=== PATIENT | female | born 1950 | race Caucasian/White ===

== ENCOUNTER 2016-07-08 09:35 | Outpatient (RCR) | payer OTHER, MEDICARE ==
[~2016-07-08 09:35] MED LIST: AMLO-320 PO; ASP81TEC PO; CLCX200C PO; CLON0.3T4 PO; EXEM25TA4 PO; HUM100VI12 SQ; HUM100VI14 SC; HYDR-3583 PO; INSU100V3 IJ; METO100T5 PO; MTF500T PO; NPH,100V SQ; OLME1TAB19 PO; OLME20TA21 PO; OMEP20CA6 PO; PRAV40TA PO
--- OUTSIDE RECORDS SUMMARY | 2016-07-08 09:38 | XMS REPORT | Continuity of Care Document ---
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 Medications Current Home Medications Medication Dose Units Route Directions Days/Qty Instructions Start Date Metformin Hcl (Glucophage) 500 Mg 2 Each Oral Twice A Day With Meals 11/10/11 Metformin Hcl (Glucophage) 500 Mg 1 Each Oral Noon 11/10/11 Celecoxib 200 Mg 1 Each Oral Daily 11/10/11 Pravastatin Sodium 40 Mg 40 Mg Oral Daily 11/10/11 Clonidine Hcl 0.3 Mg 1 Each Oral Three Times A Day 11/10/11 Hum Insulin Nph/Reg Insulin Hm 300 Units/3 Ml 60 - 65 Units Subcutaneously Daily 11/10/11 Insulin Regular Human Rec 100 U/Ml 20 - 25 U Injection Evening 11/09 Insulin Nph Human Recom 100 U/Ml 20 - 25 U Sub-Q Bedtime 11/10/11 Metoprolol Succinate (Toprol Xl) 100 Mg 1 Each Oral Twice A Day 11/05 Amlodipine/Atorvastatin 1 Each 1 Each Oral Daily 11/10/11 Omeprazole 20 Mg 20 Mg Oral Daily 11/10/11 Acetaminophen/Hydrocodone Bitart 1 Tab 1 - 2 Ea Oral Q4hr Prn MAY TAKE 1 OR 2 TABS BY MOUTH EVERY 4 HRS NEEDED FOR PAIN DO NOT EXCEED 3000 MG TYLENOL (ACETAMINOPHEN) IN A 24 HR PERIOD 11/24/11 Olmesartan 20 Mg 1 Each Oral Daily 04/30/12 Exemestane 25 Mg 50 Mg Oral 04/30/12 Past Home Medications Medication Directions Ordered Status Olmesartan 1 Tab Tablet, 1 Each Oral Daily 11/10/11 Discontinued Hum Insulin Nph/Reg Insulin Hm 3 Ml Insuln.pen, 3 Ml Sub-Q 11/10/11 Discontinued Aspirin 81 Mg Tabec, 81 Mg Oral Daily 11/10/11 Discontinued Social History Social History Problem Response Recorded Date/Time Recent Foreign Travel SEE [facility] 01/08/2016 9:25am Hx Sexually Transmitted Disorders No 2011 8:58am Hospital Discharge Instructions No hospital discharge instructions. Plan of Care Prescriptions See Medication Section Functional Status No functional status results. Allergies, Adverse Reactions, Alerts Allergen Type Severity Reaction Status Last Updated Penicillins ([id number]) Allergy Unknown Active 11/24/11 Immunizations No immunization records. Vital Signs No known vital signs results. Results No known relevant diagnostic tests, laboratory data and/or discharge summary. Procedures No known history of procedures. Encounters Encounter Location Arrival/Admit Date Discharge/Depart Date Attending Provider Discharged [facility] 01/08/16 9:29am 11:59pm GENIA BREWER MD
[2016-07-08 09:39] LABS: BASOPHILS # (AUTO) 0.1 10^3/uL (0.0-0.1); BASOPHILS % (AUTO) 1 % (0-10); EOSINOPHILS # (AUTO) 0.3 10^3/uL (0.0-0.3); EOSINOPHILS % (AUTO) 4 % (0-10); LYMPHOCYTES # (AUTO) 2.1 X 10^3 (1.0-4.0); LYMPHOCYTES % (AUTO) 29 % (12-44); MEAN CORPUSCULAR HEMOGLOBIN 30 PG (25-34); MEAN CORPUSCULAR HGB CONC 33 G/DL (32-36); MEAN CORPUSCULAR VOLUME 90 FL (80-99); MEAN PLATELET VOLUME 9.8 FL (7.4-10.4); MONOCYTES # (AUTO) 0.6 X 10^3 (0.0-1.0); MONOCYTES % (AUTO) 9 % (0-12); NEUTROPHILS # (AUTO) 4.3 X 10^3 (1.8-7.8); NEUTROPHILS % (AUTO) 58 % (42-75); PLATELET COUNT 331 10^3/uL (130-400); WHITE BLOOD COUNT 7.3 10^3/uL (4.3-11.0)
[2016-07-08 10:09] LABS: ALBUMIN 4.4 G/DL (3.2-4.5); BILIRUBIN,TOTAL 0.6 MG/DL (0.1-1.0); CALCIUM 10.3 MG/DL (8.5-10.1); CREATININE SERUM 1.23 MG/DL (0.60-1.30); POTASSIUM 3.9 MMOL/L (3.6-5.0); TOTAL PROTEIN 7.5 G/DL (6.4-8.2)
[2016-07-08 10:29] LABS: THYROID STIMULATING HORMONE 1.04 UIU/ML (0.35-4.94)
== END 2016-10-06 | disposition home or self-care (01) ==
LOC: ONC 09:35
PROVIDERS: ATTEND Internal Medicine Hematology & Oncology
DX: C50.512 Malignant neoplasm of lower-outer quadrant of left female breast (principal); M81.0 Age-related osteoporosis without current pathological fracture; E11.22 Type 2 diabetes mellitus with diabetic chronic kidney disease; I12.9 Hypertensive chronic kidney disease with stage 1 through stage 4 chronic kidney disease, or unspecified chronic kidney disease; N18.9 Chronic kidney disease, unspecified; E78.00 Pure hypercholesterolemia, unspecified; M12.9 Arthropathy, unspecified; R23.2 Flushing; Z92.3 Personal history of irradiation; Z79.4 Long term (current) use of insulin
CPT/HCPCS: 36415; 80053; 84439; 84443; 85025; 99213

== ENCOUNTER → 2016-10-29 | Outpatient (CLI) | payer MEDICARE, OTHER ==
--- NOTE | 2016-10-29 17:18 | Diagnostic Imaging Report ---
Bilateral screening mammogram The current study was also evaluated with a Computer Aided Detection (CAD) system. Indication: Screening. No current complaints stated on the questionnaire. COMPARISON: 09/09/15 From findings: The breasts are composed of suggested dense parenchyma which may decrease mammographic sensitivity. Again seen dystrophic calcifications slightly increased in the outer aspect of the left breast and the scarring related to prior lumpectomy and radiation in the outer aspect of the left breast. The right breast demonstrate the no definite change. Allowing for technique and positional differences, no suspicious change is seen. IMPRESSION: No significant change. ACR BI-RADS Category 2: Benign findings. Result letter will be mailed to the patient. Note: At least 10% of breast cancer is not imaged by mammography. Dictated by: Dictated on workstation # [id number]
== END ==
LOC: RAD 10:18
PROVIDERS: ATTEND Internal Medicine Hematology & Oncology
DX: Z12.31 Encounter for screening mammogram for malignant neoplasm of breast (principal)
CPT/HCPCS: 77067

== ENCOUNTER 2017-01-06 11:01 | Outpatient (RCR) | payer MEDICARE, OTHER ==
[2017-01-06 11:15] LABS: RED BLOOD COUNT 4.48 10^6/uL (4.35-5.85); WHITE BLOOD COUNT 7.4 10^3/uL (4.3-11.0)
[2017-01-06 11:16] LABS: BASOPHILS % (AUTO) 1 % (0-10); EOSINOPHILS # (AUTO) 0.3 10^3/uL (0.0-0.3); EOSINOPHILS % (AUTO) 4 % (0-10); LYMPHOCYTES # (AUTO) 2.2 X 10^3 (1.0-4.0); LYMPHOCYTES % (AUTO) 30 % (12-44); MEAN CORPUSCULAR HEMOGLOBIN 29 PG (25-34); MEAN CORPUSCULAR HGB CONC 33 G/DL (32-36); MEAN CORPUSCULAR VOLUME 89 FL (80-99); MEAN PLATELET VOLUME 9.8 FL (7.4-10.4); MONOCYTES # (AUTO) 0.6 X 10^3 (0.0-1.0); MONOCYTES % (AUTO) 8 % (0-12); NEUTROPHILS # (AUTO) 4.3 X 10^3 (1.8-7.8); NEUTROPHILS % (AUTO) 58 % (42-75); PLATELET COUNT 266 10^3/uL (130-400); RED CELL DISTRIBUTION WIDTH 14.3 % (10.0-14.5)
[2017-01-06 12:06] LABS: ALBUMIN 3.9 GM/DL (3.2-4.5); BILIRUBIN,TOTAL 0.4 MG/DL (0.1-1.0); CALCIUM 9.6 MG/DL (8.5-10.1); CREATININE SERUM 1.06 MG/DL (0.60-1.30); POTASSIUM 3.5 MMOL/L (3.6-5.0)
== END 2017-02-13 | disposition home or self-care (01) ==
LOC: ONC 11:01
PROVIDERS: ATTEND Internal Medicine Hematology & Oncology
DX: C50.912 Malignant neoplasm of unspecified site of left female breast (principal); E11.22 Type 2 diabetes mellitus with diabetic chronic kidney disease; I12.9 Hypertensive chronic kidney disease with stage 1 through stage 4 chronic kidney disease, or unspecified chronic kidney disease; N18.9 Chronic kidney disease, unspecified; E78.00 Pure hypercholesterolemia, unspecified; M12.9 Arthropathy, unspecified; R23.2 Flushing; Z92.3 Personal history of irradiation
CPT/HCPCS: 36415; 80053; 85025; 99213

== ENCOUNTER 2017-07-26 11:55 | Outpatient (RCR) | payer MEDICARE, OTHER ==
[2017-07-12 13:53] LABS: BASOPHILS # (AUTO) 0.1 10^3/uL (0.0-0.1); BASOPHILS % (AUTO) 1 % (0-10); EOSINOPHILS # (AUTO) 0.3 10^3/uL (0.0-0.3); EOSINOPHILS % (AUTO) 3 % (0-10); HEMATOCRIT 39 % (35-52); HEMOGLOBIN 13.1 G/DL (11.5-16.0); LYMPHOCYTES # (AUTO) 3.2 X 10^3 (1.0-4.0); LYMPHOCYTES % (AUTO) 31 % (12-44); MEAN CORPUSCULAR HEMOGLOBIN 31 PG (25-34); MEAN CORPUSCULAR HGB CONC 34 G/DL (32-36); MEAN CORPUSCULAR VOLUME 93 FL (80-99); MONOCYTES % (AUTO) 9 % (0-12); NEUTROPHILS # (AUTO) 5.8 X 10^3 (1.8-7.8); NEUTROPHILS % (AUTO) 57 % (42-75); PLATELET COUNT 244 10^3/uL (130-400); RED BLOOD COUNT 4.17 10^6/uL (4.35-5.85); RED CELL DISTRIBUTION WIDTH 13.9 % (10.0-14.5); WHITE BLOOD COUNT 10.3 10^3/uL (4.3-11.0)
[2017-07-12 14:13] LABS: ALBUMIN 3.9 GM/DL (3.2-4.5); BILIRUBIN,TOTAL 0.4 MG/DL (0.1-1.0); CALCIUM 9.2 MG/DL (8.5-10.1); CREATININE SERUM 1.55 MG/DL (0.60-1.30); POTASSIUM 3.9 MMOL/L (3.6-5.0); TOTAL PROTEIN 7.5 GM/DL (6.4-8.2)
[2017-07-26 12:23] LABS: BILIRUBIN,TOTAL 0.6 MG/DL (0.1-1.0); CALCIUM 9.6 MG/DL (8.5-10.1); CREATININE SERUM 1.36 MG/DL (0.60-1.30); POTASSIUM 3.8 MMOL/L (3.6-5.0); TOTAL PROTEIN 7.6 GM/DL (6.4-8.2)
== END 2017-10-10 | disposition home or self-care (01) ==
LOC: ONC 11:55
PROVIDERS: ATTEND Internal Medicine Hematology & Oncology
DX: C50.912 Malignant neoplasm of unspecified site of left female breast (principal); E11.22 Type 2 diabetes mellitus with diabetic chronic kidney disease; I12.9 Hypertensive chronic kidney disease with stage 1 through stage 4 chronic kidney disease, or unspecified chronic kidney disease; N18.9 Chronic kidney disease, unspecified; E78.00 Pure hypercholesterolemia, unspecified; R19.5 Other fecal abnormalities; M12.9 Arthropathy, unspecified; R23.2 Flushing; Z92.3 Personal history of irradiation; C50.512 Malignant neoplasm of lower-outer quadrant of left female breast; M81.0 Age-related osteoporosis without current pathological fracture; Z79.4 Long term (current) use of insulin
CPT/HCPCS: 36415; 80053; 82274; 85025; 99213

== ENCOUNTER → 2017-11-04 | Outpatient (CLI) | payer MEDICARE, OTHER ==
--- NOTE | 2017-11-04 12:41 | Diagnostic Imaging Report ---
PROCEDURE: US Renal Bilateral. TECHNIQUE: Multiple Real-time grayscale images were obtained over the kidneys in various projections bilaterally. INDICATION: Chronic kidney disease, stage III. FINDINGS: The right kidney measures 9.7 x 5.6 x 4.8 cm and the left kidney measures 9.0 x 5.5 x 4.5 cm. The cortical thickness is slightly thinned. The echogenicity is normal. No calculi are seen. There is no hydronephrosis. The partially filled urinary bladder is unremarkable. Ureteral jets are visualized bilaterally. IMPRESSION: There is mild cortical thinning bilaterally. No renal mass, calculus, or hydronephrosis is identified. Dictated by: Dictated on workstation # [id number]
== END ==
LOC: RAD 09:56
PROVIDERS: ATTEND Internal Medicine Nephrology
DX: N18.3 Chronic kidney disease, stage 3 (moderate) (principal); Z79.1 Long term (current) use of non-steroidal anti-inflammatories (NSAID); Z85.3 Personal history of malignant neoplasm of breast
CPT/HCPCS: 76770

== ENCOUNTER → 2017-11-04 | Outpatient (CLI) | payer MEDICARE, OTHER ==
--- NOTE | 2017-11-04 12:51 | Diagnostic Imaging Report ---
INDICATION: Routine screening. COMPARISON: 10/29/2016 and 09/09/2015. TECHNIQUE: 2D and 3D bilateral screening mammography was performed with CAD. FINDINGS: Both breasts remain heterogeneously dense, limiting the sensitivity of mammography. The overall parenchymal pattern appears to be stable. Post therapeutic changes in the left breast are again noted. The overall appearance appears to be stable. There are some dystrophic calcifications on the left. No mass is seen. Benign vascular calcifications are also seen. The axillae are unremarkable. IMPRESSION: Stable bilateral mammograms. No mammographic features suspicious for malignancy are identified. ACR BI-RADS Category 2: Benign findings. Result letter will be mailed to the patient. Note: At least 10% of breast cancer is not imaged by mammography. Dictated by: Dictated on workstation # [id number]
--- NOTE | 2017-11-04 13:48 | Diagnostic Imaging Report ---
INDICATION: Postmenopausal female presents for bone density screening. COMPARISON: 04/05/2014. TECHNIQUE: DEXA scan performed of the lumbar spine and bilateral hips. FINDINGS: The bone mineral density of the lumbar spine from L1 through L4 measures 1.310 g per square centimeter, with a T score of 1.1 and a Z score of 2.5. There has been an 8.1% decrease in bone mineral density since the prior study. The bone mineral density of the total right hip measures 1.163 g per square centimeter, with a T score 1.2 and a Z score of 2.4. The right femoral neck bone mineral density measures 0.946 g per square centimeter, with a T score of -0.7 and a Z score of 0.8. The bone mineral density of the total left hip measures 1.297 g per square centimeter, with a T score of 2.3 and a Z score of 3.5. The bone mineral density of the left femoral neck measures 1.048 g per square centimeter, with a T score of 0.1 and a Z score of 1.5. The mean bone mineral density of the bilateral hips demonstrates a 5.2% increase since the previous exam. IMPRESSION: 1. Normal bone mineral density by WHO criteria. 2. Interval decrease in bone mineral density in lumbar spine and increase in the mean bilateral hips. Dictated by: Dictated on workstation # [id number]
== END ==
LOC: RAD 09:53
PROVIDERS: ATTEND Nurse Practitioner Adult Health
DX: Z12.31 Encounter for screening mammogram for malignant neoplasm of breast (principal); Z13.820 Encounter for screening for osteoporosis; C50.512 Malignant neoplasm of lower-outer quadrant of left female breast; Z79.811 Long term (current) use of aromatase inhibitors; Z78.0 Asymptomatic menopausal state
CPT/HCPCS: 77067; 77080

== ENCOUNTER → 2018-07-11 | Outpatient (CLI) | payer MEDICARE, OTHER ==
[2018-07-11 13:12] LABS: BASOPHILS % (AUTO) 0 % (0-10); EOSINOPHILS # (AUTO) 0.1 10^3/uL (0.0-0.3); EOSINOPHILS % (AUTO) 1 % (0-10); HEMATOCRIT 38 % (35-52); HEMOGLOBIN 12.3 G/DL (11.5-16.0); LYMPHOCYTES # (AUTO) 2.7 X 10^3 (1.0-4.0); LYMPHOCYTES % (AUTO) 28 % (12-44); MEAN CORPUSCULAR HEMOGLOBIN 31 PG (25-34); MEAN CORPUSCULAR HGB CONC 33 G/DL (32-36); MEAN CORPUSCULAR VOLUME 94 FL (80-99); MEAN PLATELET VOLUME 10.2 FL (7.4-10.4); MONOCYTES # (AUTO) 0.8 X 10^3 (0.0-1.0); MONOCYTES % (AUTO) 8 % (0-12); NEUTROPHILS # (AUTO) 5.9 X 10^3 (1.8-7.8); NEUTROPHILS % (AUTO) 62 % (42-75); PLATELET COUNT 259 10^3/uL (130-400); RED CELL DISTRIBUTION WIDTH 14.2 % (10.0-14.5); WHITE BLOOD COUNT 9.5 10^3/uL (4.3-11.0)
[2018-07-11 13:40] LABS: BILIRUBIN,TOTAL 0.6 MG/DL (0.1-1.0); CALCIUM 9.8 MG/DL (8.5-10.1); CREATININE SERUM 1.35 MG/DL (0.60-1.30); POTASSIUM 3.4 MMOL/L (3.6-5.0); TOTAL PROTEIN 7.1 GM/DL (6.4-8.2)
== END ==
LOC: EDSTATUS 10-11 12:47 → ONC 13:24
PROVIDERS: ATTEND Internal Medicine Hematology & Oncology
DX: Z08 Encounter for follow-up examination after completed treatment for malignant neoplasm (principal); Z85.3 Personal history of malignant neoplasm of breast; E11.9 Type 2 diabetes mellitus without complications; I12.9 Hypertensive chronic kidney disease with stage 1 through stage 4 chronic kidney disease, or unspecified chronic kidney disease; N18.3 Chronic kidney disease, stage 3 (moderate); E78.00 Pure hypercholesterolemia, unspecified; Z88.0 Allergy status to penicillin; Z79.4 Long term (current) use of insulin; Z79.899 Other long term (current) drug therapy; Z79.82 Long term (current) use of aspirin; Z92.3 Personal history of irradiation
CPT/HCPCS: 36415; 80053; 85025; 99213

== ENCOUNTER 2018-07-30 13:12 | Emergency (ER) | payer MEDICARE, OTHER ==
[~2018-07-30] VITALS: Ht 157.5 cm; Wt 72.6 kg
[2018-07-30 13:29] LABS: HEMOGLOBIN 13.9 G/DL (11.5-16.0); MEAN CORPUSCULAR HEMOGLOBIN 31 PG (25-34); WHITE BLOOD COUNT 12.9 10^3/uL (4.3-11.0)
--- NOTE | 2018-07-30 13:29 | ED General ---
General Chief Complaint: Glucose Problems Stated Complaint: DIABETES BS - 34 History of Present Illness Date Seen by Provider: Jul 30, 2018 Time Seen by Provider: 13:14 Initial Comments 67-year-old female with history of insulin-dependent diabetes he came confused and demonstrated altered mental status. Was unable to drive. She had just been to the grocery store. She states she ate a normal breakfast and took her usual dose of insulin this morning. However, she did get more exercise than normal for her. She drank a large amount of morning. Has no associated chest pain, palpitations, nausea, vomiting or other associated symptoms. She has had insulin -dependent diabetes for approximately 25 years. She is alert and oriented when she arrived here. Prior to arrival she received a dose and protein. She dropped her blood sugar from 34-30 and was given D50 and thiamine by EMS. She had prompt improvement of her blood sugar which went to 208 and her neurologic symptoms completely resolved. Allergies and Home Medications Allergies Coded Allergies: Penicillins (Unverified Allergy, Unknown, 11/24/11) Home Medications Amlodipine/Atorvastatin 1 Each Tablet, 1 EACH PO DAILY, (Reported) Benicar Hct 20 Mg Tablet, 1 EACH PO DAILY, (Reported) Celecoxib 200 Mg Capsule, 1 EACH PO DAILY, (Reported) Clonidine Hcl 0.3 Mg Tablet, 1 EACH PO TID, (Reported) Hum Insulin Nph/Reg Insulin Hm 300 Units/3 Ml Suspension, 60-65 UNITS SC DAILY, (Reported) Hydrocodone Bit/Acetaminophen 1 Tab Tab, 1-2 EA PO Q4HR PRN, (Reported) MAY TAKE 1 OR 2 TABS BY MOUTH EVERY 4 HRS NEEDED FOR PAIN DO NOT EXCEED 3000 MG TYLENOL (ACETAMINOPHEN) IN A 24 HR PERIOD Insulin Nph Human Recom 100 U/Ml Vial, 20-25 U SQ HS, (Reported) Insulin Regular Human Rec 100 U/Ml Vial, 20-25 U IJ EVENING, (Reported) Metformin Hcl 500 Mg Tablet, 2 EACH PO BID WITH MEALS, (Reported) Metformin Hcl 500 Mg Tablet, 1 EACH PO NOON, (Reported) Metoprolol Succinate 100 Mg Tab.sr.24h, 1 EACH PO BID, (Reported) Omeprazole 20 Mg Capsule.dr, 20 MG PO DAILY, (Reported) Pravastatin Sodium 40 Mg Tablet, 40 MG PO DAILY, (Reported) Patient Home Medication List Home Medication List Reviewed: Yes Review of Systems Review of Systems Constitutional: see HPI EENTM: no symptoms reported Respiratory: no symptoms reported Cardiovascular: no symptoms reported Gastrointestinal: No diarrhea, No nausea, No vomiting Genitourinary: no symptoms reported Musculoskeletal: no symptoms reported Skin: no symptoms reported Psychiatric/Neurological: See HPI Hematologic/Lymphatic: No Symptoms Reported Immunological/Allergic: no symptoms reported Past Snrmgld-Lnkyec-Gczzvp Hx Patient Social History Recent Foreign Travel: No (N) Contact w/Someone Who Travel: No (N) Past Medical History Reproductive Disorders: No Endocrine: Yes Diabetes, Insulin dep Physical Exam Vital Signs Vital Signs - First Documented 07/30/18 13:24 Temp 97.9 Pulse 75 Resp 18 B/P (MAP) 177/72 (107) Pulse Ox 97 O2 Delivery Room Air Capillary Refill : < 2 sec Height, Weight, BMI Height: '" Weight: lbs. oz. kg; BMI Method:Stated General Appearance: No Apparent Distress (at the time of her arrival), WD/WN Eyes: Bilateral Eye Normal Inspection, Bilateral Eye PERRL, Bilateral Eye EOMI HEENT: PERRL/EOMI, TMs Normal, Normal ENT Inspection, Pharynx Normal Neck: Full Range of Motion, Normal Inspection, Non Tender, Supple, Carotid Bruit Respiratory: Chest Non Tender, Lungs Clear, Normal Breath Sounds, No Accessory Muscle Use, No Respiratory Distress Cardiovascular: Regular Rate, Rhythm, No Edema, No Gallop, No JVD, No Murmur, Normal Peripheral Pulses Gastrointestinal: Normal Bowel Sounds, No Organomegaly, No Pulsatile Mass, Non Tender, Soft Back: Normal Inspection, No CVA Tenderness, No Vertebral Tenderness Extremity: Normal Capillary Refill, Normal Inspection, Normal Range of Motion, Non Tender, No Calf Tenderness, No Pedal Edema Neurologic/Psychiatric: Alert, Oriented x3, No Motor/Sensory Deficits, Normal 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3-11.0 10^3/uL Red Blood Count 4.46 4.35-5.85 10^6/uL Hemoglobin 13.9 11.5-16.0 G/DL Hematocrit 42 35-52 % Mean Corpuscular Volume 95 80-99 FL Mean Corpuscular Hemoglobin 31 25-34 PG Mean Corpuscular Hemoglobin Concent 33 32-36 G/DL Red Cell Distribution Width 13.7 10.0-14.5 % Platelet Count 293 130-400 10^3/uL Mean Platelet Volume 10.4 7.4-10.4 FL Neutrophils (%) (Auto) 57 42-75 % Lymphocytes (%) (Auto) 30 12-44 % Monocytes (%) (Auto) 10 0-12 % Eosinophils (%) (Auto) 2 0-10 % Basophils (%) (Auto) 1 0-10 % Neutrophils # (Auto) 7.3 1.8-7.8 X 10^3 Lymphocytes # (Auto) 3.9 1.0-4.0 X 10^3 Monocytes # (Auto) 1.3 H 0.0-1.0 X 10^3 Eosinophils # (Auto) 0.3 0.0-0.3 10^3/uL Basophils # (Auto) 0.1 0.0-0.1 10^3/uL Sodium Level 138 135-145 MMOL/L Potassium Level 3.7 3.6-5.0 MMOL/L Chloride Level 98 98-107 MMOL/L Carbon Dioxide Level 15 L 21-32 MMOL/L Anion Gap 25 H 5-14 MMOL/L Blood Urea Nitrogen 15 7-18 MG/DL Creatinine 1.29 0.60-1.30 MG/DL Estimat Glomerular Filtration Rate 41 BUN/Creatinine Ratio 12 Glucose Level 40 *L 70-105 MG/DL Calcium Level 9.7 8.5-10.1 MG/DL Corrected Calcium 9.3 8.5-10.1 MG/DL Total Bilirubin 0.7 0.1-1.0 MG/DL Aspartate Amino Transf (AST/SGOT) 60 H 5-34 U/L Alanine Aminotransferase (ALT/SGPT) 59 H 0-55 U/L Alkaline Phosphatase 121 40-136 U/L Troponin T 15 H 12 H <=10 NG/L Total Protein 8.1 6.4-8.2 GM/DL Albumin 4.5 3.2-4.5 GM/DL Glucometer 178 H 175 H 70-110 MG/DL My Orders Orders - LINDA LARKIN MD Comprehensive Metabolic Panel (07/30/18 13:21) Cbc With Automated Diff (07/30/18 13:21) Ua Culture If Indicated (07/30/18 13:21) Ekg Tracing (07/30/18 13:21) Troponin T (07/30/18 13:21) Troponin T (07/30/18 15:11) Accucheck Stat ONCE (07/30/18 15:50) Vital Signs/I&O 07/30/18 13:24 Temp 97.9 Pulse 75 Resp 18 B/P (MAP) 177/72 (107) Pulse Ox 97 O2 Delivery Room Air Capillary Refill : Progress Note #1: Time: 13:29 Progress Note As patient responded to D50 and is neurologically intact we'll obtain basic metabolic workup, UA and cardiac studies. She'll be closely monitored for any recurrence of her hypoglycemia. I discussed the evaluation treatment plan with patient and her family agree with course. Progress Note #2: Time: 14:14 Progress Note Patient doing well. Her blood sugar has been normalized. I discussed her lab studies with her including her elevated liver functions and slightly elevated troponin. I recommended a repeat troponin at 2 hours. She is agreeable to this. 1611 Feeling good. Blood sugars have been good. Second troponin decreased. We discussed her chronic EKG changes and recommended close monitoring of glucose and follow up with PCP. ECG Initial ECG Impression Date: Jul 30, 2018 Initial ECG Impression Time: 13:38 Initial ECG Rate: 59 Initial ECG Rhythm: S.Main Initial ECG Intervals: Normal Initial ECG Impression: Nonspecific Changes, Sinus Bradycardia Initial ECG Comparisson: No Previous ECG Available Comment Slow R wave progression. No acute changes. Departure Impression Primary Impression: Type 1 diabetes mellitus Qualified Codes: E10.9 - Type 1 diabetes mellitus without complications Additional Impression: Hypoglycemia associated with diabetes Disposition: 01 HOME, SELF-CARE Condition: Improved Departure-Patient Inst. Decision time for Depature: 16:12 Referrals: KAMAR OSORIO DO (PCP/Family) Primary Care Physician 2-3 days, sooner as needed Patient Instructions: Diabetes Type 1, Adult (DC), HYPOGLYCEMIA LINDA LARKIN MD Jul 30, 2018 13:29
[2018-07-30 13:30] LABS: BASOPHILS # (AUTO) 0.1 10^3/uL (0.0-0.1); BASOPHILS % (AUTO) 1 % (0-10); EOSINOPHILS # (AUTO) 0.3 10^3/uL (0.0-0.3); EOSINOPHILS % (AUTO) 2 % (0-10); HEMATOCRIT 42 % (35-52); LYMPHOCYTES # (AUTO) 3.9 X 10^3 (1.0-4.0); LYMPHOCYTES % (AUTO) 30 % (12-44); MEAN CORPUSCULAR HGB CONC 33 G/DL (32-36); MEAN CORPUSCULAR VOLUME 95 FL (80-99); MEAN PLATELET VOLUME 10.4 FL (7.4-10.4); MONOCYTES # (AUTO) 1.3 X 10^3 (0.0-1.0); MONOCYTES % (AUTO) 10 % (0-12); NEUTROPHILS # (AUTO) 7.3 X 10^3 (1.8-7.8); NEUTROPHILS % (AUTO) 57 % (42-75); PLATELET COUNT 293 10^3/uL (130-400); RED CELL DISTRIBUTION WIDTH 13.7 % (10.0-14.5)
[2018-07-30 13:50] LABS: POTASSIUM 3.7 MMOL/L (3.6-5.0)
[2018-07-30 13:51] LABS: CREATININE SERUM 1.29 MG/DL (0.60-1.30)
[2018-07-30 13:52] LABS: ALBUMIN 4.5 GM/DL (3.2-4.5); BILIRUBIN,TOTAL 0.7 MG/DL (0.1-1.0); CALCIUM 9.7 MG/DL (8.5-10.1); TOTAL PROTEIN 8.1 GM/DL (6.4-8.2)
[2018-07-30 16:26] VITALS: BP 138/78
== END 2018-07-30 16:22 | disposition home or self-care (01) ==
LOC: EDUNIT# 13:12 → ER FS 13:15
DX: E10.649 Type 1 diabetes mellitus with hypoglycemia without coma (principal); Z88.0 Allergy status to penicillin; Z79.4 Long term (current) use of insulin
CPT/HCPCS: 36415; 80053; 82962; 84484; 85025; 93005

== ENCOUNTER → 2019-07-11 | Outpatient (CLI) | payer MEDICARE, OTHER ==
[2019-07-11 13:18] LABS: BASOPHILS % (AUTO) 0 % (0-10); EOSINOPHILS # (AUTO) 0.2 10^3/uL (0.0-0.3); EOSINOPHILS % (AUTO) 3 % (0-10); HEMATOCRIT 40 % (35-52); HEMOGLOBIN 13.2 G/DL (11.5-16.0); LYMPHOCYTES # (AUTO) 3.7 X 10^3 (1.0-4.0); LYMPHOCYTES % (AUTO) 39 % (12-44); MEAN CORPUSCULAR HEMOGLOBIN 31 PG (25-34); MEAN CORPUSCULAR HGB CONC 33 G/DL (32-36); MEAN CORPUSCULAR VOLUME 95 FL (80-99); MEAN PLATELET VOLUME 10.5 FL (7.4-10.4); MONOCYTES # (AUTO) 0.9 X 10^3 (0.0-1.0); MONOCYTES % (AUTO) 9 % (0-12); NEUTROPHILS # (AUTO) 4.8 X 10^3 (1.8-7.8); NEUTROPHILS % (AUTO) 50 % (42-75); PLATELET COUNT 218 10^3/uL (130-400); RED CELL DISTRIBUTION WIDTH 13.9 % (10.0-14.5); WHITE BLOOD COUNT 9.6 10^3/uL (4.3-11.0)
[2019-07-11 13:49] LABS: ALBUMIN 4.2 GM/DL (3.2-4.5); BILIRUBIN,TOTAL 0.5 MG/DL (0.1-1.0); CALCIUM 9.7 MG/DL (8.5-10.1); CREATININE SERUM 1.3 MG/DL (0.60-1.30); POTASSIUM 3.3 MMOL/L (3.6-5.0); TOTAL PROTEIN 7.6 GM/DL (6.4-8.2)
== END ==
LOC: ONC 13:02
PROVIDERS: ATTEND Internal Medicine Hematology & Oncology
DX: C50.912 Malignant neoplasm of unspecified site of left female breast (principal)
CPT/HCPCS: 80053; 85025; 99213

== ENCOUNTER → 2019-11-10 | Outpatient (CLI) | payer MEDICARE, OTHER ==
--- NOTE | 2019-11-10 22:25 | Diagnostic Imaging Report ---
INDICATION: Carcinoma, left breast. At this time there are no current complaints. EXAMINATION: Bilateral breast digital diagnostic mammogram with CAD. 3D tomographic images were obtained and reviewed. The current study was also evaluated with a Computer Aided Detection (CAD) system. COMPARISON: This study was compared to the prior exam of 11/07/2018, 11/04/2017 and 10/29/2016. FINDINGS: By history, patient has had a lumpectomy on the left in 2011. The scar formation and the deformity of the left breast seen on the prior exam are again evident and not significantly changed. There is no sign of recurrent malignancy involving the left breast. The fibroglandular tissue in both breasts is heterogeneously dense. This does limit the sensitivity of this exam. Overall, there does not appear to have been any significant change. There is no primary or secondary sign of malignancy noted. IMPRESSION: There is no evidence for malignancy. ACR BI-RADS Category 1: Negative. Result letter will be mailed to the patient. Note: At least 10% of breast cancer is not imaged by mammography. Dictated by: Dictated on workstation # [id number]
== END ==
LOC: RAD 13:55
PROVIDERS: ATTEND Nurse Practitioner Adult Health
DX: R92.2 Inconclusive mammogram (principal); Z85.3 Personal history of malignant neoplasm of breast
CPT/HCPCS: 77066; G0279; 77062

== ENCOUNTER → 2020-07-09 | Outpatient (CLI) | payer MEDICARE, OTHER ==
[2020-07-09 13:17] LABS: BASOPHILS % (AUTO) 1 % (0-10); EOSINOPHILS # (AUTO) 0.2 10^3/uL (0.0-0.3); EOSINOPHILS % (AUTO) 3 % (0-10); HEMATOCRIT 38 % (35-52); HEMOGLOBIN 12.9 g/dL (11.5-16.0); LYMPHOCYTES % (AUTO) 38 % (12-44); MEAN CORPUSCULAR HEMOGLOBIN 31 pg (25-34); MEAN CORPUSCULAR HGB CONC 34 g/dL (32-36); MEAN CORPUSCULAR VOLUME 91 fL (80-99); MEAN PLATELET VOLUME 10.3 fL (9.0-12.2); MONOCYTES # (AUTO) 0.7 10^3/uL (0.0-1.0); MONOCYTES % (AUTO) 9 % (0-12); NEUTROPHILS # (AUTO) 3.9 10^3/uL (1.8-7.8); NEUTROPHILS % (AUTO) 50 % (42-75); PLATELET COUNT 199 10^3/uL (130-400); WHITE BLOOD COUNT 7.9 10^3/uL (4.3-11.0)
[2020-07-09 13:37] LABS: ALBUMIN 3.7 GM/DL (3.2-4.5); BILIRUBIN,TOTAL 0.7 MG/DL (0.1-1.0); CALCIUM 9.1 MG/DL (8.5-10.1); CREATININE SERUM 1.33 MG/DL (0.60-1.30); POTASSIUM 3.6 MMOL/L (3.6-5.0); TOTAL PROTEIN 7.2 GM/DL (6.4-8.2)
== END ==
LOC: ONC 12:55
PROVIDERS: ATTEND Internal Medicine Hematology & Oncology
DX: D05.12 Intraductal carcinoma in situ of left breast (principal); I10 Essential (primary) hypertension; E78.00 Pure hypercholesterolemia, unspecified; E11.9 Type 2 diabetes mellitus without complications; Z92.3 Personal history of irradiation
CPT/HCPCS: 80053; 85025; G0463; 99213

== ENCOUNTER → 2020-11-11 | Outpatient (CLI) | payer MEDICARE, OTHER ==
--- NOTE | 2020-11-11 13:37 | Diagnostic Imaging Report ---
INDICATION: Routine screening. COMPARISON: 11/10/2019 and 11/07/2018. TECHNIQUE: 2D and 3D bilateral screening mammography was performed with CAD. FINDINGS: Both breasts are heterogeneously dense, limiting the sensitivity of mammography. Post therapeutic changes in the left breast appear stable. There are benign parenchymal and vascular calcifications bilaterally. No spiculated mass or malignant appearing microcalcifications are seen. The axillae are unremarkable. IMPRESSION: No mammographic features suspicious for malignancy are identified. ACR BI-RADS Category 2: Benign findings. Result letter will be mailed to the patient. Note: At least 10% of breast cancer is not imaged by mammography. Dictated by: Dictated on workstation # [id number]
== END ==
LOC: RAD 11:30
PROVIDERS: ATTEND Internal Medicine Hematology & Oncology
DX: Z12.31 Encounter for screening mammogram for malignant neoplasm of breast (principal)
CPT/HCPCS: 77063; 77067

== ENCOUNTER 2021-08-13 11:45 | Outpatient (CLI) | payer MEDICARE, OTHER ==
[~2021-08-13 11:45] MED LIST changes: +ACET-2267 PO; +AMLO-251 PO; +ASPI-1238 PO; +ATOR20TA66 PO; +CALC-140 PO; +CINN500C2 PO; +CLN.2T PO; +CLON0.3T PO; +CYAN-41 PO; +FLUT16SP22 NSEACH; +HYDR25TA4 PO; +INSU100V3 SC; +INSU100V5 SC; +METO100T12 PO; +MULT-1136 PO; +NF-SODBICA PO; +OMEG-35 PO; +OMEP-401 PO; +SITA100T12 PO; +SPIR25TA5 PO; +SYRI-1325 MC
[2021-08-13 12:30] VITALS: BP 162/75
--- NOTE | 2021-08-13 15:08 | Diagnostic Imaging Report ---
INDICATION: Ascites. Sonographic interrogation of all 4 quadrants of the abdomen was performed to evaluate for ascites. There is moderate fluid in all 4 quadrants. Right lower quadrant was marked for Dr. Rivera for performance of a paracentesis. IMPRESSION: Moderate ascites. The right lower quadrant was marked for performance of paracentesis. Dictated by: Dictated on workstation # [id number]
--- NOTE | 2021-08-13 18:32 | OPERATIVE REPORT ---
DATE OF SERVICE: 08/13/2021 ATTENDING PRIMARY CARE PHYSICIAN: Yan Saldivar DO PREOPERATIVE DIAGNOSIS: Recurrent symptomatic ascites. POSTPROCEDURE DIAGNOSIS: Recurrent symptomatic ascites. PROCEDURE: Paracentesis. SURGEON: Gualberto Desai MD ANESTHESIA: Local. ESTIMATED BLOOD LOSS: Minimal. FINDINGS: Straw yellow transudative fluid. DISPOSITION: The patient tolerated the procedure well. INDICATIONS: The patient is a 70-year-old female who was admitted on 06/30/2021 for diabetic ketoacidosis. She was in the hospital approximately 2 weeks and on this admission, she had abdominal distention and a positive fluid shift wave consistent with ascites and underwent 2 paracenteses on that admission. She is since being discharged home, she has done a lot better and it has been approximately one month. She has developed some abdominal distention and recurrent ascites, which was confirmed on ultrasound. Before the procedure, the abdomen was marked by ultrasonography in the right lower abdominal quadrant. A 1% lidocaine was then used to anesthetize the skin, subcutaneous tissue, muscle layers as well as the peritoneal lining. A vertical skin incision was made using 11 blade and the trocar and catheter were then placed withdrawing of straw yellow transudative fluid and the catheter was then advanced over the trocar without any resistance. The catheter was then connected to tubing and gravity drainage bag. The catheter was then covered with sterile gauze followed by 4 x 4 gauze followed by Op-Site. The patient tolerated the procedure well. We will continue with drainage until symptomatic decompression, removed the catheter. She will also be instructed to continue with her spironolactone as well as to proceed with a low sodium diet of 1500 mg daily as well as liquid volume reduction to approximately 1.5 to 2 liters on a daily basis. Job ID: [id number] DocumentID: [id number] Dictated Date: 08/13/2021 14:32:05 Group Home Paraprofessional Date: 08/13/2021 18:31:38 Dictated By: GUALBERTO DESAI MD
== END 2021-08-13 16:05 | disposition home or self-care (01) ==
LOC: RAD 11:45
PROVIDERS: ATTEND Surgery
DX: R18.8 Other ascites (principal)
CPT/HCPCS: 49082; 76942

== ENCOUNTER 2021-08-27 11:48 | Outpatient (CLI) | payer MEDICARE, OTHER ==
[~2021-08-27] VITALS: Ht 157.5 cm; Wt 70.2 kg
--- NOTE | 2021-08-27 13:38 | Diagnostic Imaging Report ---
INDICATION: Ascites. FINDINGS: All four quadrants of the abdomen were evaluated for ascites. There appears to be a large-volume ascites. Marking was provided in the right lower quadrant for Dr. Rivera for performance of paracentesis. IMPRESSION: Large abdominal ascites. Dictated by: Dictated on workstation # [id number]
[2021-08-27 17:22] VITALS: BP 143/62
--- NOTE | 2021-08-27 19:06 | OPERATIVE REPORT ---
DATE OF SERVICE: 08/27/2021 ATTENDING PRIMARY CARE PHYSICIAN: Yan Saldivar DO PREOPERATIVE DIAGNOSIS: Symptomatic recurrent ascites. POSTOPERATIVE DIAGNOSIS: Symptomatic recurrent ascites. PROCEDURE: Paracentesis. SURGEON: Gualberto Desai MD ANESTHESIA: Local. ESTIMATED BLOOD LOSS: Minimal. FINDINGS: Straw yellow transudative fluid. DISPOSITION: The patient tolerated the procedure well. INDICATIONS: The patient is a 70-year-old female with history of diabetes, who was initially seen at [facility]; however, transferred to [facility] due to diabetic ketoacidosis and acute kidney injury. On that admission, she was found to have abdominal distention and a positive fluid shift wave and she did have 2 paracenteses procedures done on that admission. We feel that the likely causative agent is liver steatosis. She underwent an outpatient paracentesis approximately 2 weeks ago as well. She again presents with recurrent abdominal distention with a positive fluid shift wave causing compression and difficulty breathing. DESCRIPTION OF PROCEDURE: The abdomen was marked by ultrasound before the procedure and the abdomen was prepped and draped in standard surgical fashion. A 1% lidocaine was then used to anesthetize the skin, subcutaneous tissue, muscle layers as well as the peritoneal lining. A vertical skin incision was then made using 11 blade. Trocar and sheath were then placed withdrawing of straw yellow transudative fluid. Catheter was then advanced over the trocar without any resistance and the catheter was connected to tubing and a gravity drainage bag. The catheter was then cleaned and covered with gauze followed by Op-Site. The patient tolerated the procedure well. We will continue with drainage until there is minimal drainage or she is decompressed and asymptomatic and then removed the catheter and instruct her to call whenever she has reoccurrence to again scheduled outpatient paracentesis as needed. Job ID: [id number] DocumentID: [id number] Dictated Date: 08/27/2021 15:06:58 [employer] Date: 08/27/2021 19:05:43 Dictated By: GUALBERTO DESAI MD
== END 2021-08-27 17:22 | disposition home or self-care (01) ==
LOC: SDC 11:48
PROVIDERS: ATTEND Surgery
DX: R18.8 Other ascites (principal)
CPT/HCPCS: 49082; 76942

== ENCOUNTER 2021-09-17 11:46 | Outpatient (CLI) | payer MEDICARE, OTHER ==
--- NOTE | 2021-09-17 12:52 | Diagnostic Imaging Report ---
INDICATION: Ascites. FINDINGS: Sonographic interrogation of all 4 quadrants of the abdomen was performed. There is minimal fluid in the right upper quadrant. There is a large volume of ascites in the right lower quadrant which was marked. There is moderate ascites in the left upper and left lower quadrants. IMPRESSION: Moderate abdominal ascites. The right lower quadrant was marked for performance of a paracentesis. Dictated by: Dictated on workstation # [id number]
[2021-09-17] MEDS ORDERED: LIDOCAINE 1% INJ 20 ML VIAL ONE (14:09)
[2021-09-17] MEDS ORDERED: LIDOCAINE 1% INJ 20 ML VIAL INJ ONE (14:15)
[2021-09-17 16:12] VITALS: BP 142/78
--- NOTE | 2021-09-17 21:44 | OPERATIVE REPORT ---
DATE OF SERVICE: 09/17/2021 ATTENDING PRIMARY CARE PHYSICIAN: Yan Saldivar DO PREPROCEDURE DIAGNOSIS: Recurrent symptomatic ascites. POSTPROCEDURE DIAGNOSIS: Recurrent symptomatic ascites. PROCEDURE: Paracentesis. SURGEON: Gualberto Desai MD. ANESTHESIA: Local. ESTIMATED BLOOD LOSS: Minimal. FINDINGS: Straw yellow transudative fluid. DISPOSITION: The patient tolerated the procedure well. INDICATIONS: The patient is a 70-year-old female with history of diabetes, who was initially seen at [facility] and transferred to [facility] due to diabetic ketoacidosis and acute kidney injury. On admission, she was found to have abdominal distention and a positive fluid shift wave, and had to undergo 2 paracenteses procedures on that admission. We feel that the likely cause of her ascites is liver steatosis and some level of liver cirrhosis. She has underwent several outpatient paracenteses with the last one done on 08/27/2021. She has had recurrent abdominal distention, which has been symptomatic. DESCRIPTION OF PROCEDURE: An ultrasound was performed and marked in the right lower abdominal quadrant. The abdomen was then prepped and draped in standard surgical fashion. A 1% lidocaine was then used to anesthetize the skin, subcutaneous tissue, muscle layers as well as the peritoneal lining. A vertical skin incision was then made using an 11 blade. Trocar and catheter were then introduced withdrawing of straw yellow transudative fluid. The catheter was then advanced over the trocar without any resistance. The catheter was then connected to tubing and a gravity drainage bag. Catheter was covered with sterile gauze followed by Op-Site. The patient tolerated the procedure well. We will continue with drainage until minimal or no drainage or the abdominal distention has decreased and she is asymptomatic. When she has a recurrence of ascites, she will be instructed to call the office to schedule another one in same day surgery. Job ID: [id number] DocumentID: [id number] Dictated Date: 09/17/2021 14:41:28 Director Occupational Date: 09/17/2021 21:44:04 Dictated By: GUALBERTO DESAI MD [facility]
== END 2021-09-17 16:10 | disposition home or self-care (01) ==
LOC: SDC 11:46
PROVIDERS: ATTEND Surgery
DX: R18.8 Other ascites (principal)
CPT/HCPCS: 49082; 76942